=== PATIENT | female | born 1995 | race Caucasian/White ===

== ENCOUNTER 2017-10-02 14:23 | Emergency (ER) | payer OTHER ==
--- NOTE | 2017-10-02 15:08 | EDPHY ---
H & P Time Seen by Provider: 10/02/17 15:04 HPI/ROS: Chief complaint. Abdominal pain HPI. 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 She has a history of idiopathic pancreatitis. Her last flare was last week and then about a month before that. Symptoms started this morning. She has upper aching abdominal pain radiating through to her back. No precipitating factors of dietary indiscretion, trauma, alcohol. Symptoms are typical of pancreatitis flare. She has nausea but no vomiting. No chest discomfort or trouble breathing. ROS Constitutional. no fever/chills, no weakness Eyes. no problems with vision ENT. no sore throat, no nasal drainage Cardiovascular. no chest pain Respiratory. no shortness of breath, no cough Abdominal. Upper abdominal pain with nausea . no problems urinating MS. no calf pain/swelling, no neck/back pain, no joint pain Skin. no rash Lymph. no swollen glands Neuro. no headache, no dizziness, no difficulty walking or with speech Past Medical/Surgical History: Idiopathic pancreatitis Social History: Single, nonsmoker, no alcohol Smoking Status: Never smoked Physical Exam: General Appearance: Alert pleasant well-developed female moderate distress vital signs are stable Eyes: Pupils equal and round no pallor or injection. ENT, Mouth: Mucous membranes are moist. Respiratory: There are no retractions, lungs are clear to auscultation. Cardiovascular: Regular rate and rhythm. Gastrointestinal: Abdomen is soft with epigastric abdominal pain. Normal bowel sounds. No mass Neurological: Awake and alert, sensory and motor exams grossly normal. Skin: Warm and dry, no rashes. Musculoskeletal: Neck is supple nontender. Extremities symmetrical, full range of motion. Psychiatric: Patient is oriented X 3, there is no agitation. Constitutional: Initial Vital Signs Temperature (C) 36.8 C 10/02/17 14:26 Heart Rate 81 10/02/17 14:26 Respiratory Rate 18 10/02/17 14:26 Blood Pressure 113/82 H 10/02/17 14:26 O2 Sat (%) 96 10/02/17 14:26 O2 Delivery Mode Room Air Allergies/Adverse Reactions: hydromorphone [From Dilaudid] Allergy (Verified 10/02/17 14:26) Penicillins Allergy (Verified 10/02/17 14:25) Home Medications: Medication Instructions Recorded NK [No Known Home Meds] 10/02/17 Medical Decision Making Procedures: IV normal saline with initial target 2 L. Morphine for pain. Zofran for nausea ED Course/Re-evaluation: Recheck at 4:05 p.m.. Patient is stable though continued to complain of pain and inadequate relief with the 1st round of morphine. She will be re- medicated. We will reassess and decide on admission versus outpatient management Re-evaluation again at 5:45 p.m.. Patient is stable she is feeling much better. She feels that she is able to go home. She has her own medication for further treatment of pancreatitis. Patient and I discussed treatment plan including criteria for return and importance of follow-up and further evaluation. She expresses understanding and agreement Differential Diagnosis: Apparent idiopathic pancreatitis history. Typical symptoms. Lipase is elevated. However patient feels well without vomiting and feels she can be treated as an outpatient. - Data Points Laboratory Results: Laboratory Results 10/02/17 14:50 10/02/17 14:50 10/02/17 10/02/17 14:50 14:50 WBC 5.55 10^3/uL 10^3/uL (3.80-9.50) RBC 4.66 10^6/uL 10^6/uL (4.18-5.33) Hgb 13.2 g/dL g/dL (12.6-16.3) Hct 39.9 % % (38.0-47.0) MCV 85.6 fL fL (81.5-99.8) MCH 28.3 pg pg (27.9-34.1) MCHC 33.1 g/dL g/dL (32.4-36.7) RDW 13.9 % % (11.5-15.2) Plt Count 389 10^3/uL 10^3/uL (150-400) MPV 9.6 fL fL (8.7-11.7) Neut % (Auto) 50.9 % % (39.3-74.2) Lymph % (Auto) 41.4 % % (15.0-45.0) [place] % (Auto) 6.7 % % (4.5-13.0) Eos % (Auto) 0.4 % L % (0.6-7.6) Baso % (Auto) 0.4 % % (0.3-1.7) Nucleat RBC Rel Count 0.0 % % (0.0-0.2) Absolute Neuts (auto) 2.83 10^3/uL 10^3/uL (1.70-6.50) Absolute Lymphs (auto) 2.30 10^3/uL 10^3/uL (1.00-3.00) Absolute Monos (auto) 0.37 10^3/uL 10^3/uL (0.30-0.80) Absolute Eos (auto) 0.02 10^3/uL L 10^3/uL (0.03-0.40) Absolute Basos (auto) 0.02 10^3/uL 10^3/uL (0.02-0.10) Absolute Nucleated RBC 0.00 10^3/uL 10^3/uL (0-0.01) Immature Gran % 0.2 % % (0.0-1.1) Immature Gran # 0.01 10^3/uL 10^3/uL (0.00-0.10) Sodium 144 mEq/L mEq/L (135-145) Potassium 4.5 mEq/L mEq/L (3.3-5.0) Chloride 109 mEq/L mEq/L (97-110) Carbon Dioxide 20 mEq/l L mEq/l (22-31) Anion Gap 15 mEq/L mEq/L (8-16) BUN 11 mg/dL mg/dL (7-23) Creatinine 0.5 mg/dL L mg/dL (0.6-1.0) Estimated GFR > 60 Glucose 91 mg/dL mg/dL (70-100) Calcium 9.6 mg/dL mg/dL (8.5-10.4) Lipase 511 IU/L H IU/L (23-300) Medications Given: Discontinued Medications Sodium Chloride (Ns) 1,000 mls @ 0 mls/hr IV EDNOW ONE; Wide Open PRN Reason: Protocol Stop: 10/02/17 15:17 Last Admin: 10/02/17 15:25 Dose: 1,000 mls Sodium Chloride (Ns) 1,000 mls @ 0 mls/hr IV EDNOW ONE; Wide Open PRN Reason: Protocol Stop: 10/02/17 15:18 Last Admin: 10/02/17 15:26 Dose: 1,000 mls Morphine Sulfate (Morphine) 6 mg IVP EDNOW ONE Stop: 10/02/17 15:17 Last Admin: 10/02/17 15:27 Dose: 6 mg Morphine Sulfate (Morphine) 6 mg IVP EDNOW ONE Stop: 10/02/17 15:56 Last Admin: 10/02/17 16:09 Dose: 6 mg Ondansetron HCl (Zofran) 4 mg IVP EDNOW ONE Stop: 10/02/17 15:17 Last Admin: 10/02/17 15:27 Dose: Not Given Departure - Departure Disposition: Home, Routine, Self-Care Clinical Impression: Abdominal pain Qualifiers: Abdominal location: epigastric Qualified Code(s): R10.13 - Epigastric pain Pancreatitis Qualifiers: Chronicity: acute Pancreatitis type: idiopathic Acute pancreatitis complication : unspecified Qualified Code(s): K85.00 - Idiopathic acute pancreatitis without necrosis or infection Condition: Good Instructions: Pancreatitis (ED) Additional Instructions: Use your regular medications that you have with you to treat pancreatitis. Frequent, small sips fluids while nauseated. Gradual diet advancement Return for worsening symptoms. Recheck in 1-2 days for continuing symptoms Referrals: NONE *PRIMARY CARE P,. [Primary Care Provider] - As per Instructions Sim Kirkpatrick MD, FACG [Medical Doctor] - As per Instructions
[2017-10-02] MEDS ORDERED: NS 1,000 ML IV ONE ×2 (15:16→15:17)
[2017-10-02] MEDS: ONDANSETRON 4 MG/2 ML VIAL IVP ONE ×2 (15:25→15:27)
[2017-10-02 15:29] LABS: PLATELET COUNT 389 10^3/uL (150-400)
[2017-10-02 18:26] VITALS: BP 129/70
== END 2017-10-02 18:24 | disposition home or self-care (01) ==
DX: K85.00 Idiopathic acute pancreatitis without necrosis or infection (principal); E86.9 Volume depletion, unspecified
CPT/HCPCS: 96374; J2270; J2405

== ENCOUNTER 2017-10-27 12:41 | Inpatient (IN) | payer OTHER ==
--- NOTE | 2017-10-27 13:08 | EDPHY ---
H & P Stated Complaint: LUQ pain, n/v Time Seen by Provider: 10/27/17 13:08 HPI/ROS: CHIEF COMPLAINT: Acute the attack of chronic pancreatitis HISTORY OF PRESENT ILLNESS: The patient is very pleasant the 21-year-old female presents to the ED with acute pancreatitis. The patient has had a history of idiopathic pancreatitis since the age of 14. She is currently in [place] participating in a back country education class. She required helicopter transport to [facility] last night. She was treated in the emergency department with pain pain medications. Her lipase was normal however CT scan did demonstrate chronic pancreatitis with the some intraductal calcifications. The patient was discharged home with oral morphine. The patient presents to the ED with intractable pain and vomiting. She denies any drug or alcohol use. She takes no regular medications. REVIEW OF SYSTEMS: A comprehensive 10 point review of systems is otherwise negative aside from elements mentioned in the history of present illness. Source: Patient Exam Limitations: No limitations - Personal History LMP (Females 10-55): 1-7 Days Ago Current Tetanus/Diphtheria Vaccine: Yes Current Tetanus Diphtheria and Acellular Pertussis (TDAP): Yes - Medical/Surgical History Hx Asthma: No Hx Chronic Respiratory Disease: No Hx Diabetes: No Hx Cardiac Disease: No Hx Renal Disease: No Hx Cirrhosis: No Hx Alcoholism: No Hx HIV/AIDS: No Hx Splenectomy or Spleen Trauma: No Other PMH: PANCREATITIS - Social History Smoking Status: Never smoked - Physical Exam Exam: General Appearance: Alert, mild discomfort Eyes: Pupils equal and round no pallor or injection ENT, Mouth: Mucous membranes moist Respiratory: There are no retractions, lungs are clear to auscultation Cardiovascular: Regular rate and rhythm Gastrointestinal: Epigastric tenderness to palpation, normal bowel sounds Neurological: 5/5 strength all 4 extremities Skin: Warm and dry, no rashes Musculoskeletal: Neck is supple nontender Extremities: symmetrical, full range of motion Constitutional: Initial Vital Signs Temperature (C) 36.4 C 10/27/17 12:45 Heart Rate 77 10/27/17 12:45 Respiratory Rate 16 10/27/17 12:45 Blood Pressure 121/74 H 10/27/17 12:45 O2 Sat (%) 96 10/27/17 12:45 O2 Delivery Mode Room Air Allergies/Adverse Reactions: hydromorphone [From Dilaudid] Allergy (Verified 10/27/17 12:44) Penicillins Allergy (Verified 10/27/17 12:44) Home Medications: Medication Instructions Recorded Ondansetron [Ondansetron Odt] 4 mg PO Q6 PRN 10/27/17 morphINE IR [morphINE IR 15 mg (*)] 15 mg PO Q6 PRN 10/27/17 Medical Decision Making ED Course/Re-evaluation: The patient had an IV established. She received 1 L of normal saline, 4 mg of IV Zofran and 5 mg of IV morphine. The patient will require admission to the hospital for supportive care. I reviewed the results of her CT scan and prior laboratories testing performed earlier today. Consultation was made with Dr. Edgard Cotto from the hospitalist service who will admit the patient. Differential Diagnosis: Differential diagnosis considered includes pancreatitis, hepatitis, dehydration , renal failure, metabolic abnormality, pseudocyst - Data Points Laboratory Results: Laboratory Results 10/27/17 13:15 10/27/17 13:15 10/27/17 10/27/17 13:15 13:15 WBC 6.15 10^3/uL 10^3/uL (3.80-9.50) RBC 4.54 10^6/uL 10^6/uL (4.18-5.33) Hgb 12.7 g/dL g/dL (12.6-16.3) Hct 39.8 % % (38.0-47.0) MCV 87.7 fL fL (81.5-99.8) MCH 28.0 pg pg (27.9-34.1) MCHC 31.9 g/dL L g/dL (32.4-36.7) RDW 14.2 % % (11.5-15.2) Plt Count 334 10^3/uL 10^3/uL (150-400) MPV 9.9 fL fL (8.7-11.7) Neut % (Auto) 46.6 % % (39.3-74.2) Lymph % (Auto) 44.1 % % (15.0-45.0) [place] % (Auto) 8.3 % % (4.5-13.0) Eos % (Auto) 0.5 % L % (0.6-7.6) Baso % (Auto) 0.2 % L % (0.3-1.7) Nucleat RBC Rel Count 0.0 % % (0.0-0.2) Absolute Neuts (auto) 2.87 10^3/uL 10^3/uL (1.70-6.50) Absolute Lymphs (auto) 2.71 10^3/uL 10^3/uL (1.00-3.00) Absolute Monos (auto) 0.51 10^3/uL 10^3/uL (0.30-0.80) Absolute Eos (auto) 0.03 10^3/uL 10^3/uL (0.03-0.40) Absolute Basos (auto) 0.01 10^3/uL L 10^3/uL (0.02-0.10) Absolute Nucleated RBC 0.00 10^3/uL 10^3/uL (0-0.01) Immature Gran % 0.3 % % (0.0-1.1) Immature Gran # 0.02 10^3/uL 10^3/uL (0.00-0.10) Sodium 137 mEq/L mEq/L (135-145) Potassium 4.8 mEq/L mEq/L (3.3-5.0) Chloride 110 mEq/L mEq/L (97-110) Carbon Dioxide 22 mEq/l mEq/l (22-31) Anion Gap 5 mEq/L L mEq/L (8-16) BUN 10 mg/dL mg/dL (7-23) Creatinine 0.6 mg/dL mg/dL (0.6-1.0) Estimated GFR > 60 Glucose 74 mg/dL mg/dL (70-100) Calcium 8.8 mg/dL mg/dL (8.5-10.4) Total Bilirubin 0.9 mg/dL mg/dL (0.1-1.4) Conjugated Bilirubin 0.5 mg/dL mg/dL (0.0-0.5) Unconjugated Bilirubin 0.4 mg/dL mg/dL (0.0-1.1) AST 53 IU/L H IU/L (14-46) ALT 53 IU/L H IU/L (9-52) Alkaline Phosphatase 54 IU/L IU/L (38-126) Total Protein 8.2 g/dL g/dL (6.3-8.2) Albumin 4.2 g/dL g/dL (3.5-5.0) Lipase 110 IU/L IU/L (23-300) Specimen Hemolysis 123 Medications Given: Sodium Chloride (Ns) 1,000 mls @ 150 mls/hr IV CONT YANELIS Stop: 04/25/18 14:59 Last Admin: 10/27/17 15:51 Dose: 1,000 mls Morphine Sulfate (Morphine) 5 mg IVP Q4HRS PRN PRN Reason: Pain, Severe Unable to Take PO Stop: 11/06/17 15:02 Last Admin: 10/27/17 15:13 Dose: 5 mg Promethazine HCl (Phenergan) 12.5 mg IVP Q6HRS PRN PRN Reason: Nausea/Vomiting, Can't Take PO Stop: 04/25/18 15:02 Last Admin: 10/27/17 15:14 Dose: 12.5 mg Discontinued Medications Sodium Chloride (Ns) 1,000 mls @ 0 mls/hr IV EDNOW ONE; Wide Open PRN Reason: Protocol Stop: 10/27/17 13:17 Last Admin: 10/27/17 13:35 Dose: 1,000 mls Morphine Sulfate (Morphine) 4 mg IVP EDNOW ONE Stop: 10/27/17 13:41 Last Admin: 10/27/17 13:44 Dose: 4 mg Ondansetron HCl (Zofran) 4 mg IVP EDNOW ONE Stop: 10/27/17 13:17 Last Admin: 10/27/17 13:43 Dose: 4 mg Departure - Departure Disposition: [facility] Clinical Impression: Chronic pancreatitis Condition: Good
[2017-10-27] MEDS ORDERED: NS 1,000 ML IV ONE (13:16)
[2017-10-27] MEDS ORDERED: ONDANSETRON 4 MG/2 ML VIAL IVP ONE (13:16)
[2017-10-27 13:45] LABS: PLATELET COUNT 334 10^3/uL (150-400)
--- NOTE | 2017-10-27 15:04 | PDGENHP ---
History and Physical History and Physical: CC: ABDOMINAL PAIN HISTORY: This young woman has a history of chronic recurrent pancreatitis, which started occurring at age 14. This is when she lived in [facility] and she was initially evaluated at [facility]. Her initial evaluation showed no cause and it was termed idiopathic recurrent pancreatitis. She has less attacks than she used to but states that recently she has been noted to have some pancreatic ductal stones. Her gallbladder has been removed. She does not drink any alcohol to speak of. [place] with [place] guided group when last evening she started having abdominal pain nausea vomiting, and had a syncope spell due to the severity of pain. [place] the [place] and was visited early this morning at the emergency room at [facility]. There she was diagnosed with probable acute pancreatitis. A CT scan of the abdomen was done as well as some blood tests. She was hydrated given pain and nausea medicines and improved symptoms and was discharged from the ER. Through the day she has had continually worsening pain and nausea comes into our ER now with left upper quadrant pain nausea and vomiting. She denies any symptoms suggestive of fever. There has been no blood in her emesis. The pain episodes she is having now reminds her distinctly of previous pancreatitis episodes. She says her last drink of alcohol was approximately 1/2 beer 2 weeks ago and she has about that much alcohol no more than once a month. She does not take any prescription medications at home. Previously the patient has had several pancreatic stents placed by ERCP, and they tend to fall out she says typically and fairly short period of time. In addition to the history of recurrent of recurrent pancreatitis, the patient gives a history of an AVM in the liver that was coiled. ROS: A COMPREHENSIVE 10 SYSTEM REVIEW REVEALED NO OTHER SIGNIFICANT FINDINGS PAST MEDICAL HISTORY: Pancreatitis as above Hepatic AVM status post coiling Cholecystectomy FAMILY MEDICAL HISTORY: Coronary heart disease SOCIAL HISTORY: No more than 1/2 to 1 drink per month No tobacco or drug use MEDICATIONS: Usually no medicines, was given some Zofran and morphine tablets and she left the other ER today PHYSICAL EXAMINATION: VITAL SIGNS: Stable without fever ADMINISTRATIVE COURT JUSTICE: EXAMINATION: GENERAL: ALERT, ORIENTED, GOOD MENTATION, RELAXED SKIN: WARM, DRY, GOOD COLOR, NO RASH, NO JAUNDICE HEENT: NORMAL NECK: NO MASS OR JVD RESPS: RELAXED LUNGS: CLEAR BREATH SOUNDS HEART: REGULAR, NO MURMUR ABDOMEN: SOFT, NONDISTENDED, MILDLY DIFFUSELY TENDER WITHOUT GUARDING OR REBOUND , MINIMAL BOWEL SOUNDS ARE HEARD, NO MASS UPPER EXTREMITIES: NORMAL LOWER EXTREMITIES: NO EDEMA, WARM NO BLEEDING OR BRUISING NEUROLOGIC: NORMAL SPEECH/LANGUAGE, NORMAL CRUTCH MAKER, NO FOCAL WEAKNESS IV SITE: LOOKS NORMAL LABORATORY DATA: Unremarkable CBC Mildly elevated hepatic transaminases within normal bilirubin Normal lipase Otherwise normal metabolic panels RADIOLOGY STUDIES: There is a CT scan report from a study done at [facility] earlier this morning. I do not have images but I have the report from this which shows a) evidence of chronic pancreatitis with calcifications, b) 9 x 4 by 7 mm stone in the main pancreatic duct with upstream ductal dilatation, c) a low-density area in the pancreatic tail of uncertain etiology, with the radiologist suggesting possible focal ductal dilatation or a fluid collection such as a pseudocyst, and d)"mild surrounding hypoattenuation within the pancreatic parenchyma which may represent mild pancreatic necrosis" . Despite noting these findings, the radiologist states further that there is no explanation for the chronic pancreatitis and no evidence of acute pancreatitis. ASSESSMENT: # ACUTE PANCREATITIS SYMPTOMATIC EARLY, WITH HISTORY OF CHRONIC RECURRENT IDIOPATHIC PANCREATITIS # PRESENCE OF A PANCREATIC DUCTAL STONE WHICH APPEARS TO BE OBSTRUCTING, WITH PRIOR HISTORY OF PANCREATIC DUCTAL STONES # CHANGES WITHIN PANCREATIC PARENCHYMA WITH AN OUTSIDE RADIOLOGIST COMMENTING ON THE POSSIBILITY OF NECROSIS OR PSEUDOCYST FORMATION, THOUGH WITH THE SAME WHAT RADIOLOGIST STATING NO SUGGESTION OF ACUTE PANCREATITIS PLANS: * Admission hospital for hydration and pain and nausea management * I will consult with our jet worker radiologist here regarding the findings as stated by the outside radiologist; is unclear to me whether the ductal stone requires any further assessment or management * Will see if we are somehow able to get the actual images available from the other hospital to have our radiologist give their opinion about findings or directly I HAVE REVIEWED THE PATIENT'S CASE IN DETAIL WITH DR. MICHAEL WALKER I HAVE REVIEWED THE PATIENT'S PAST MEDICAL RECORDS PART OF THIS ASSESSMENT, INCLUDING CT SCAN AND LABORATORY RECORDS FROM OUTSIDE HOSPITAL EARLIER TODAY
[2017-10-27] MEDS ORDERED: PROMETHAZINE HCL 25 MG/ML INJ ONE (15:07)
[2017-10-27] MEDS: PROMETHAZINE HCL 25 MG/ML INJ IVP PRN (15:14)
[2017-10-27] MEDS: NS 1,000 ML IV SCH ×3 (15:17→22:19)
--- NOTE | 2017-10-27 15:59 | PDMN ---
Medical Necessity Medical necessity: Pt meets inpt criteria per MD order and MCG M-250, Pancreatitis RRG-2 days. Pt admitted with worsening upper quad pain, nausea and vomiting, requiring IVF for hydration, IV pain meds and IV antiemetics. Pt has hx of chronic, recurrent, idiopathic pancreatitis, CT scan today shows pancreatic ductal stone obstruction and changes within pancreatic parenchyma, AST and ALT elevated (53,53). Pt requires inpt monitoring and treatment.
[2017-10-27] MEDS ORDERED: HEPARIN 5,000 UNIT/0.5 ML INJ SC SCH (22:00)
[2017-10-28] MEDS: NS 1,000 ML IV SCH (04:40)
[2017-10-28] MEDS: PROMETHAZINE HCL 25 MG/ML INJ IVP PRN ×3 (09:40→22:08)
--- NOTE | 2017-10-28 09:46 | HOSPPROG ---
Hospitalist Progress Note Assessment/Plan: 21-year-old admitted with abdominal pain nausea vomiting. Please review admitting H and P for full details. Apparently she has had recurrent pancreatitis since the age of 14 that is idiopathic and possibly stone related. She is from [place] and is here volunteering for a camp up at [place]. She was med of active from the [facility] down to the hospital in [place] where she had a CT scan of the abdomen and pelvis which showed a pancreatic ductal stone. She continues to have abdominal pain today # abdominal pain, nausea vomiting with normal lipase. * Will ask GI to consult * Could consider MRCP, would avoid another CT scan given the patient's age and radiation exposure * For now continue supportive care with pain control, antiemetics and IV fluids Subjective: Patient new to me and chart reviewed. Still having quite a bit of pain on or sips and chips Objective: Vital Signs Temp Pulse Resp BP Pulse Ox 36.8 C 74 15 94/45 L 95 10/28/17 08:49 10/28/17 08:49 10/28/17 08:49 10/28/17 08:49 10/28/17 08:49 Laboratory Results 10/28/17 04:04 10/27/17 10/28/17 10/29/17 05:59 05:59 05:59 Intake Total 3178 Output Total 750 Balance 3178 -750 - Physical Exam Constitutional: uncomfortable Eyes: PERRL Ears, Nose, Mouth, Throat: hearing normal, ears appear normal Cardiovascular: regular rate and rhythym, no murmur, rub, or gallop Respiratory: no respiratory distress, clear to auscultation Gastrointestinal: tenderness Genitourinary: no bladder fullness Skin: warm, normal color Musculoskeletal: full muscle strength Neurologic: AAOx3 Psychiatric: interacting appropriately ICD10 Worksheet Patient Problems: Problems Problem Status Onset Chronic pancreatitis Acute
--- NOTE | 2017-10-28 09:48 | ASMTCASEMG ---
Living Arrangements What is your living Answers: With One Parent arrangement? Who do you live with? Type Of Residence What kind of residence do Answers: House you live in? Type of Residence Facility Name Notes: Patient lives in [facility]. Discharge Plan Comments Coordination Status Comments Notes: Patient is a 21 yo single female who has a hx of chronic recurrent pancreatitis, which started at age 14. Patient was on a backcountry wilderness experience when she started having abdominal pain, nausea, and vomiting. Patient was helicoptered out [place] the mountains to the [facility]. She was hydrated, given medications and discharged from their ER. Throughout the day her pain and nausea worsened and she came to our ER. Patient has had several pancreatic stents placed by ERCP and they tend to fall out in a short period of time by patient's report. No therapies have been ordered at this time. D/C needs TBD. CM will follow. Date Signed: 10/28/2017 09:47 AM Electronically Signed By:Mili Bonilla LCSW
--- NOTE | 2017-10-28 12:20 | GCON ---
[f rep st] CONSULTATION REASON FOR CONSULTATION: Pancreatitis. CHIEF COMPLAINT: Abdominal pain. HISTORY: Briefly, the patient is a very pleasant 21-year-old female, with a past medical history significant for recurrent acute on chronic pancreatitis. She developed her 1st episode of pancreatitis when she was 14 years old. She reports she has had countless episodes since. She has had her gallbladder removed. She has had multiple ERCPs. She has had prior pancreas duct stones and strictures. She has had a prior pancreas duct stricture management with stenting and prior stone management with lithotripsy. She has done this in her hometown of [facility]. 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 She was transferred to [facility], where she was originally evaluated with imaging. She improved some with conservative measures and was discharged home, but began to feel worse and so re -presented to [facility] for ongoing management. She reports nausea, abdominal pain, but denies fever, chills or sweats. She has had no change in bowel habits. She reports she has had worse episodes of pancreatitis than this. Her imaging at [facility], CT scan revealed a pancreatic duct stone that was 9 mm in size. She reports she started to feel somewhat better today, but continues to have abdominal pain. She reports no alcohol use. She does not smoke cigarettes. PAST MEDICAL HISTORY: Notable only for pancreatitis. ALLERGIES: Hydromorphone and penicillin. FAMILY HISTORY: Negative for pancreatitis. REVIEW OF SYSTEMS: A complete 14-point review was undertaken with the patient and is negative except for those details described in the history of present illness. PHYSICAL EXAM: GENERAL: This is a well-developed female in no apparent distress. HEENT: Her pupils are equal, round, react to light and accommodation. Sclerae nonicteric. Oropharynx is clear. NECK: Supple without lymphadenopathy. HEART: Regular without murmur. ABDOMEN: Soft, but tender throughout. EXTREMITIES: Free of cyanosis, clubbing, edema. NEURO: Grossly nonfocal. SKIN: Warm and dry. PSYCHIATRIC: Normal mood and affect. LABORATORY DATA: White count of 6.15, hemoglobin of 12.7, hematocrit of 39.8, platelet count of 334. Sodium of 138, potassium of 4.2, chloride of 109, bicarb of 19, BUN of 7, creatinine of 0.6. AST of 34, ALT of 58, alkaline phosphatase of 51, albumin of 31, lipase of 110. IMPRESSION/RECOMMENDATIONS: Based on her clinical history, current symptoms, and recent imaging, I suspect she is having acute on chronic pancreatitis. This may be the result of the development of a pancreatic duct stone. At this time, I recommend we manage her conservatively with standard pancreatitis care. We will leave her n.p.o. on analgesics and antiemetics. Hopefully, she will "cool down, "and can undergo elective, perhaps outpatient, pancreatic duct manipulation with lithotripsy and stent placement. If she becomes acutely worse , is not resolving her pancreatitis, we can consider pancreatic duct intervention more quickly. /[id number]/MODL MTDD
[2017-10-28] MEDS: D5W NS 1,000 ML IV SCH ×2 (13:07→22:08)
[2017-10-28] MEDS ORDERED: GADOBUTROL 10 ML VIAL IVP ONE (17:01)
[2017-10-29] MEDS: D5W NS 1,000 ML IV SCH (05:49)
[2017-10-29] MEDS: PROMETHAZINE HCL 25 MG/ML INJ IVP PRN (05:49)
--- NOTE | 2017-10-29 07:31 | SOAPPROG ---
SOAP Progress Note Assessment/Plan: Assessment: 1. Pancreatitis - idiopathic etiology, long standing issue - prior hx of frequent acute on chronic episodes - prior management at home is [facility] - PD stent, stricture, stone present on MRCP - no pseudocyst or mass noted - pt reports improvement, but still with pain Plan: 1. ok to do small amounts of fat-free clears today 2. continue supportive care 3. hope to dc home soon, pending clinical course 4. will likely need outpatient ERCP with choledocoscopy, lithotripsy, and repeat PD stent placement once current pancreatitis "cools off' 5. continue supportive care 10/29/17 07:28 Subjective: CC: pancreatitis S: still with pain, using pain meds every 4-6 hrs mild nausea anxious to try some clear liquids despite the above overall, patient reports significant improvement overnight no fever Objective: Vital Signs Temp Pulse Resp BP Pulse Ox 38 C 82 16 107/66 96 10/29/17 04:00 10/29/17 04:00 10/29/17 04:00 10/29/17 04:00 10/29/17 04:00 Laboratory Results 10/28/17 04:04 10/28/17 10/29/17 10/30/17 05:59 05:59 05:59 Intake Total 3178 2620 Output Total 750 Balance 3178 1870 Physical Exam - Physical Exam General Appearance: alert, no apparent distress EENT: PERRL/EOMI Respiratory: lungs clear, normal breath sounds Cardiac/Chest: normal peripheral pulses, regular rate, rhythm, No edema Abdomen: normal bowel sounds, soft, No non-tender, No organomegaly, No distended , No guarding, No rebound Skin: normal color Extremities: normal range of motion Neuro/Psych: no motor/sensory deficits, alert, normal mood/affect, oriented x 3 ICD10 Worksheet Patient Problems: Problems Problem Status Onset Chronic pancreatitis Acute
--- NOTE | 2017-10-29 09:14 | HOSPPROG ---
Hospitalist Progress Note Assessment/Plan: DIAGNOSES: # ACUTE PANCREATITIS SYMPTOMATIC, WITH HISTORY OF CHRONIC RECURRENT IDIOPATHIC PANCREATITIS # PRESENCE OF A PANCREATIC DUCTAL STONE WHICH APPEARS TO BE OBSTRUCTING, WITH PRIOR HISTORY OF PANCREATIC DUCTAL STONES # CHANGES WITHIN PANCREATIC PARENCHYMA WITH AN OUTSIDE RADIOLOGIST COMMENTING ON THE POSSIBILITY OF NECROSIS OR PSEUDOCYST FORMATION PLANS: * attempt increase diet today * follow sxs closely * will review w Dr Box; since she is feeling better I expect we will want to continue conservative care until pancreas improves before any procedures related to her stone in order to minimize any risk of worsening pancreatitis SUBJECTIVE: She does notice some decrease in pain today Still nausea requiring antiemetics but no vomiting Feels like she may be able to eat more today OBJECTIVE Vitals reviewed: All stable without fever Exam: alert oriented skin warm dry color ok resps not labored lungs clear BSs heart regular abd soft nondistended minimally tender without guarding or rebound, bowel sounds present limbs warm, no edema iv site ok Objective: Vital Signs Temp Pulse Resp BP Pulse Ox 38 C 82 16 107/66 96 10/29/17 04:00 10/29/17 04:00 10/29/17 04:00 10/29/17 04:00 10/29/17 04:00 Laboratory Results 10/28/17 04:04 10/28/17 10/29/17 10/30/17 06:59 06:59 06:59 Intake Total 8028 2620 Output Total 750 Balance 2429 2620 ICD10 Worksheet Patient Problems: Problems Problem Status Onset Chronic pancreatitis Acute
--- NOTE | 2017-10-29 16:00 | ASMTCMCOM ---
CM Note CM Note Notes: CM met with Pt. 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 She is able to arrange a ride for herself. No CM needs have been identified. D/C Plan: Anticipate independent. Date Signed: 10/29/2017 04:00 PM Electronically Signed By:Shannon Bertrand
--- NOTE | 2017-10-30 11:17 | SOAPPROG ---
SOAP Progress Note Assessment/Plan: Assessment: 1. Pancreatitis - idiopathic etiology, long standing issue - prior hx of frequent acute on chronic episodes - prior management at home is [facility] - PD stent, stricture, stone present on MRCP - no pseudocyst or mass noted - improved. no need for iv pain meds Plan: 1. ok to dc home 2. may benefit from panc enzyme supplements with meals/snack (data is equivocal) 3. NO ETOH 4. LOW/NO fat diet 5. My office will help to arrange follow-up ERCP SHAMAR 10/30/17 11:14 Subjective: CC: pancreatitis S: feeling better eating with limited pain no nausea no fever no diarrhea anxious to go home Objective: Vital Signs Temp Pulse Resp BP Pulse Ox 36.9 C 70 15 102/68 95 10/30/17 09:02 10/30/17 09:02 10/30/17 09:02 10/30/17 09:02 10/30/17 09:02 Laboratory Results 10/28/17 04:04 10/29/17 10/30/17 10/31/17 05:59 05:59 05:59 Intake Total 2620 500 150 Output Total 750 Balance 1870 500 150 Physical Exam - Physical Exam General Appearance: alert EENT: PERRL/EOMI Respiratory: lungs clear, normal breath sounds Cardiac/Chest: regular rate, rhythm Abdomen: normal bowel sounds, non-tender, soft Skin: normal color Neuro/Psych: no motor/sensory deficits ICD10 Worksheet Patient Problems: Problems Problem Status Onset Chronic pancreatitis Acute
[2017-10-30 12:21] VITALS: BP 103/71
--- NOTE | 2017-10-30 18:57 | PDDCSUM ---
Discharge Summary Discharge Summary: DISCHARGE DIAGNOSES: * acute on chronic pancreatitis * pancreatic ductal stone with upstream pancreatic ductal dilatation * possible development of pseudocyst * long history of recurrent chronic idiopathic pancreatitis with extensive evaluation elsewhere CONSULTANTS: Dr. Maureen Chapman PROCEDURES: Abdominal MRI scan HOSPITAL COURSE SUMMARY: This patient who has had intermittent idiopathic pancreatitis since age 14 came in with a typical episode of epigastric and left upper quadrant pain, nausea and vomiting. Her pain was great enough that she actually had a syncopal spell. She was initially evaluated at another hospital where a CT scan showed evidence of chronic pancreatitis, a ductal stone, and upstream ductal dilatation with some changes suggesting possible early pseudocyst formation. She had been discharged from that ER with some pain medicines but had ongoing and worsening symptoms so presented to our emergency room with the same symptoms. The patient did not have evidence of fever, necrosis, renal failure, or other complications at this time. She was admitted the hospital here and treated with conservative care including IV hydration and pain and nausea medicines as needed. She was initially NPO and then we had her try clear fluids and eventually moved on to a diet as tolerated with low fat. Overall she improved slowly but steadily and at this point still has some mild pain but is able to eat and drink keep herself well hydrated. It is felt she is safe for discharge from hospital. However as she does have a stone in her main pancreatic duct with obstruction, it is recommended that she follow up in [facility]astroenterology [facility] and have ERCP with attempted removal of that stone that may require lithotripsy. She understands this well and plans to visit in 1 week at the gastroenterology clinic. She understands the need to avoid alcohol and fatty foods. She understands to eat slowly. She understands to watch for fever worsening pain vomiting or other symptoms that might indicate that she needs other attention sooner. PENDING TEST RESULTS: None MEDICATION CHANGES: Zofran is added for nausea Initially prescription was offered for Creon tablets however due to patient[place] from [place] this was unaffordable for her and she will not fill that prescription FOLLOW-UP PLAN: In [address] Charu Chapman or Dr. Dona magallanes gastroenterology clinic, with plans to do ERCP with attempted removal of pancreatic ductal stone Greater than 35 minutes bedside and care coordination time today
== END 2017-10-30 15:40 | disposition home or self-care (01) | DRG 439 ==
LOC: F1N 15:21
PROVIDERS: ADMIT Internal Medicine; ATTEND Internal Medicine
DX: K85.00 Idiopathic acute pancreatitis without necrosis or infection (principal); K86.1 Other chronic pancreatitis; K86.89 Other specified diseases of pancreas; K86.3 Pseudocyst of pancreas
CPT/HCPCS: 96374; A9585; J2270; J2405; J2550

== ENCOUNTER 2017-11-09 21:55 | Emergency (ER) | payer OTHER ==
[2017-11-09] MEDS ORDERED: NS 1,000 ML IV ONE (22:14)
[2017-11-09] MEDS ORDERED: ONDANSETRON 4 MG/2 ML VIAL IVP ONE (22:14)
--- NOTE | 2017-11-09 22:24 | EDPHY ---
H & P Stated Complaint: Abd pain HX of pancreatitis Time Seen by Provider: 11/09/17 22:24 HPI/ROS: HPI CHIEF COMPLAINT: "I am having a pancreatitis flare" HISTORY OF PRESENT ILLNESS: Very pleasant 21-year-old female, she has idiopathic pancreatitis, pancreatic stones she is due on November 17 to have a ERCP performed, and removal of these pancreatic stones. She does not have any pancreatic stents. No history of pancreatic divisum. She does have a history of pancreatitis from idiopathic pancreatitis. She states around 8:00 p.m. Tonight or 2 and 0.5 hr ago she developed some epigastric abdominal pain. No vomiting. Does have nausea. She took morphine at 8:00 p.m. This helped a little bit but continues to have pain. Denies any fever, denies chest pain or shortness of breath. States feels exactly like previous pancreatitis flare. Past Medical History: Idiopathic pancreatitis Past Surgical History: Cholecystectomy Social History: Denies daily use drugs alcohol tobacco. Family History: Noncontributory ROS REVIEW OF SYSTEMS: A comprehensive 10 point review of systems is otherwise negative aside from elements mentioned in the history of present illness. Exam Constitutional appears well nontoxic no acute distress triage nursing summary reviewed, vital signs reviewed, awake/alert. Eyes normal conjunctivae and sclera, EOMI, PERRLA. HENT normal inspection, atraumatic, moist mucus membranes, no epistaxis, neck supple/ no meningismus, no raccoon eyes. Respiratory clear to auscultation bilaterally, normal breath sounds, no respiratory distress, no wheezing. Cardiovascular rate normal, regular rhythm, no murmur, no edema, distal pulses normal. Gastrointestinal mild tender palpation epigastric region no rebound, no guarding, normal bowel sounds, no distension, no pulsatile mass. Genitourinary no CVA tenderness. Musculoskeletal no midline vertebral tenderness, full range of motion, no calf swelling, no tenderness of extremities, no meningismus, good pulses, neurovascularly intact. Skin pink, warm, & dry, no rash, skin atraumatic. Neurologic awake, alert and oriented x 3, AAOx3, moves all 4 extremities equally, motor intact, sensory intact, CN II-XII intact, normal cerebellar, normal vision, normal speech. Psychiatric normal mood/affect. Heme/Lymph/Immune no lymphadenopathy. Differential diagnosis includes but is not limited to and in no particular order : Bowel obstruction, appendicitis, gallbladder disease, diverticulitis, colitis , enteritis, perforated viscus, gastritis, GERD, esophagitis, urinary tract infection, pyelonephritis, kidney stones Medical Decision Making: Plan for this patient IV establishment IV fluid bolus 1 L normal saline, IV morphine for pain control as she prefers this, IV Zofran for nausea, check lipase, basic lab work and re-evaluate. At This time I do not feel that any imaging is needed. Will re-evaluate. Re-evaluation: 0235: Patient re-evaluated resting comfortably. Re-examination abdomen is soft nontender. She is not vomiting. No fever. Blood work has been reviewed. Do not feel that she needs any imaging at this time. She feels much better after IV fluids and IV pain control. She is requesting discharge home. However I did discuss with her return precautions she understands return emergency room she develops worsening abdominal pain fever vomiting. Source: Patient - Personal History LMP (Females 10-55): 1-7 Days Ago Current Tetanus/Diphtheria Vaccine: Unsure Current Tetanus Diphtheria and Acellular Pertussis (TDAP): Unsure - Medical/Surgical History Hx Asthma: No Hx Chronic Respiratory Disease: No Hx Diabetes: No Hx Cardiac Disease: No Hx Renal Disease: No Hx Cirrhosis: No Hx Alcoholism: No Hx HIV/AIDS: No Hx Splenectomy or Spleen Trauma: No Other PMH: PANCREATITIS, gall bladder removed, depression - Social History Smoking Status: Never smoked Constitutional: Initial Vital Signs Temperature (C) 36.9 C 11/09/17 21:56 Heart Rate 85 11/09/17 21:56 Respiratory Rate 16 11/09/17 21:56 Blood Pressure 129/85 H 11/09/17 21:56 O2 Sat (%) 98 11/09/17 21:56 O2 Delivery Mode Room Air Allergies/Adverse Reactions: hydromorphone [From Dilaudid] Allergy (Verified 10/27/17 12:44) Penicillins Allergy (Verified 10/27/17 12:44) Home Medications: Medication Instructions Recorded morphINE IR [morphINE IR 15 mg (*)] 15 mg PO Q6 PRN 10/27/17 Lipase 12,000/Amylase/Protease 2 cap PO AC #180 cap 10/30/17 [Creon 12 (*)] Ondansetron [Ondansetron Odt] 4 mg PO Q6 PRN #20 tab.rapdis 10/30/17 Medical Decision Making - Data Points Laboratory Results: Laboratory Results 11/09/17 22:30 11/09/17 23:40 11/09/17 11/09/17 11/09/17 23:40 22:30 22:30 WBC RBC Hgb Hct MCV MCH MCHC RDW Plt Count MPV Neut % (Auto) Lymph % (Auto) [place] % (Auto) Eos % (Auto) Baso % (Auto) Nucleat RBC Rel Count Absolute Neuts (auto) Absolute Lymphs (auto) Absolute Monos (auto) Absolute Eos (auto) Absolute Basos (auto) Absolute Nucleated RBC Immature Gran % Immature Gran # Sodium 138 mEq/L mEq/L 137 mEq/L mEq/L (135-145) (135-145) Potassium 5.2 mEq/L H mEq/L 6.0 mEq/L H mEq/L (3.3-5.0) (3.3-5.0) Chloride 110 mEq/L mEq/L 108 mEq/L mEq/L (97-110) (97-110) Carbon Dioxide 20 mEq/l L mEq/l 18 mEq/l L mEq/l (22-31) (22-31) Anion Gap 8 mEq/L mEq/L 11 mEq/L mEq/L (8-16) (8-16) BUN 14 mg/dL mg/dL 14 mg/dL mg/dL (7-23) (7-23) Creatinine 0.5 mg/dL L mg/dL 0.5 mg/dL L mg/dL (0.6-1.0) (0.6-1.0) Estimated GFR > 60 > 60 Glucose 111 mg/dL H mg/dL 109 mg/dL H mg/dL (70-100) (70-100) Calcium 9.1 mg/dL mg/dL 9.2 mg/dL mg/dL (8.5-10.4) (8.5-10.4) Total Bilirubin 1.2 mg/dL mg/dL (0.1-1.4) Conjugated Bilirubin 1.1 mg/dL H mg/dL (0.0-0.5) Unconjugated Bilirubin 0.1 mg/dL mg/dL (0.0-1.1) AST 73 IU/L H IU/L (14-46) ALT 36 IU/L IU/L (9-52) Alkaline Phosphatase 70 IU/L IU/L (38-126) Total Protein 8.9 g/dL H g/dL (6.3-8.2) Albumin 4.6 g/dL g/dL (3.5-5.0) Lipase 289 IU/L IU/L (23-300) Beta HCG, Qual NEGATIVE Specimen Hemolysis 204 312 11/09/17 22:30 WBC 8.46 10^3/uL 10^3/uL (3.80-9.50) RBC 4.68 10^6/uL 10^6/uL (4.18-5.33) Hgb 12.8 g/dL g/dL (12.6-16.3) Hct 39.6 % % (38.0-47.0) MCV 84.6 fL fL (81.5-99.8) MCH 27.4 pg L pg (27.9-34.1) MCHC 32.3 g/dL L g/dL (32.4-36.7) RDW 13.2 % % (11.5-15.2) Plt Count 491 10^3/uL H 10^3/uL (150-400) MPV 9.2 fL fL (8.7-11.7) Neut % (Auto) 57.1 % % (39.3-74.2) Lymph % (Auto) 35.1 % % (15.0-45.0) [place] % (Auto) 5.9 % % (4.5-13.0) Eos % (Auto) 1.3 % % (0.6-7.6) Baso % (Auto) 0.2 % L % (0.3-1.7) Nucleat RBC Rel Count 0.0 % % (0.0-0.2) Absolute Neuts (auto) 4.83 10^3/uL 10^3/uL (1.70-6.50) Absolute Lymphs (auto) 2.97 10^3/uL 10^3/uL (1.00-3.00) Absolute Monos (auto) 0.50 10^3/uL 10^3/uL (0.30-0.80) Absolute Eos (auto) 0.11 10^3/uL 10^3/uL (0.03-0.40) Absolute Basos (auto) 0.02 10^3/uL 10^3/uL (0.02-0.10) Absolute Nucleated RBC 0.00 10^3/uL 10^3/uL (0-0.01) Immature Gran % 0.4 % % (0.0-1.1) Immature Gran # 0.03 10^3/uL 10^3/uL (0.00-0.10) Sodium Potassium Chloride Carbon Dioxide Anion Gap BUN Creatinine Estimated GFR Glucose Calcium Total Bilirubin Conjugated Bilirubin Unconjugated Bilirubin AST ALT Alkaline Phosphatase Total Protein Albumin Lipase Beta HCG, Qual Specimen Hemolysis Medications Given: Discontinued Medications Sodium Chloride (Ns) 1,000 mls @ 0 mls/hr IV EDNOW ONE; Wide Open PRN Reason: Protocol Stop: 11/09/17 22:15 Last Admin: 11/09/17 23:07 Dose: 1,000 mls Sodium Chloride (Ns) 1,000 mls @ 0 mls/hr IV ONCE ONE PRN Reason: Wide Open Stop: 11/10/17 01:00 Last Admin: 11/10/17 01:14 Dose: 1,000 mls Morphine Sulfate (Morphine) 4 mg IVP EDNOW ONE Stop: 11/09/17 22:31 Last Admin: 11/09/17 23:07 Dose: 4 mg Morphine Sulfate (Morphine) 4 mg IVP EDNOW ONE Stop: 11/10/17 00:02 Last Admin: 11/10/17 00:02 Dose: 4 mg Morphine Sulfate (Morphine) 6 mg IVP EDNOW ONE Stop: 11/10/17 01:00 Last Admin: 11/10/17 01:12 Dose: 6 mg Ondansetron HCl (Zofran) 4 mg IVP EDNOW ONE Stop: 11/09/17 22:15 Last Admin: 11/09/17 23:08 Dose: 4 mg Departure - Departure Disposition: Home, Routine, Self-Care Clinical Impression: Abdominal pain Qualifiers: Abdominal location: generalized Qualified Code(s): R10.84 - Generalized abdominal pain Condition: Good Instructions: Acute Abdominal Pain (ED) Additional Instructions: 1. Ward diet over the next 24-48 hours no spicy fatty greasy foods. 2. Return emergency room if you have worsening abdominal pain fever vomiting. Referrals: NONE *PRIMARY CARE P,. [Primary Care Provider] - As per Instructions
[2017-11-09 23:11] LABS: PLATELET COUNT 491 10^3/uL (150-400)
[2017-11-10] MEDS ORDERED: NS 1,000 ML IV ONE (00:59)
[2017-11-10 02:41] VITALS: BP 120/77
== END 2017-11-10 03:01 | disposition home or self-care (01) ==
DX: R10.84 Generalized abdominal pain (principal); E86.9 Volume depletion, unspecified; Z90.49 Acquired absence of other specified parts of digestive tract
CPT/HCPCS: 96374; J2270; J2405

== ENCOUNTER 2017-11-17 00:55 | Emergency (ER) | payer OTHER ==
[2017-11-17] MEDS ORDERED: NS 1,000 ML IV ONE (01:15)
[2017-11-17] MEDS ORDERED: PROMETHAZINE HCL 25 MG/ML INJ IVP ONE (01:15)
--- NOTE | 2017-11-17 01:19 | EDPHY ---
H & P Stated Complaint: abd pain x 1 hr,? pancreatitis Time Seen by Provider: 11/17/17 01:10 HPI/ROS: Chief Complaint: Pancreatitis flare, abdominal pain HPI: 22-year-old woman with a history of idiopathic pancreatitis with a known pancreatic duct stones presenting with epigastric abdominal pain for the last 2 hr consistent with prior pancreatitis flares. Patient was admitted to this hospital on the of this month. She was also seen here on the with a flare of her pancreatitis. She is scheduled for an ERCP by gastroenterology in 2 days. She has not had any significant flare since her last ED visit. Pain began about 2 hr ago. Currently a 12/29. She took morphine and Zofran at home without any relief. Some nausea no vomiting. No fevers or chills. ROS: 10 point Review of Systems is negative except as noted in the HPI. PMH: Idiopathic pancreatitis Social History: No smoking, no alcohol, no recreational drug use Family History: non-contributory Physical Exam: Gen: Awake, Alert, No Distress HEENT: Nose: no rhinorrhea Eyes: PERRLA, EOMI Mouth: Moist mucosa Neck: Supple, no JVD Chest: nontender, lungs clear to auscultation Heart: S1, S2 normal, no murmur Abd: Soft, moderate epigastric tenderness, no guarding Back: no CVA tenderness, no midline tenderness Ext: no edema, non-tender Skin: no rash Neuro: CN II-XII intact, Sensation grossly intact, Strength 5/5 in bilateral upper and lower extremities - Personal History LMP (Females 10-55): 1-7 Days Ago Current Tetanus Diphtheria and Acellular Pertussis (TDAP): Yes - Medical/Surgical History Hx Asthma: No Hx Chronic Respiratory Disease: No Hx Diabetes: No Hx Cardiac Disease: No Hx Renal Disease: No Hx Cirrhosis: No Hx Alcoholism: No Hx HIV/AIDS: No Hx Splenectomy or Spleen Trauma: No Other PMH: PANCREATITIS, gall bladder removed, depression - Social History Smoking Status: Never smoked Constitutional: Initial Vital Signs Temperature (C) 36.5 C 11/17/17 00:59 Heart Rate 82 11/17/17 00:59 Respiratory Rate 16 11/17/17 00:59 Blood Pressure 124/83 H 11/17/17 00:59 O2 Sat (%) 97 11/17/17 00:59 O2 Delivery Mode Room Air Allergies/Adverse Reactions: hydromorphone [From Dilaudid] Allergy (Verified 10/27/17 12:44) Penicillins Allergy (Verified 10/27/17 12:44) Home Medications: Medication Instructions Recorded morphINE IR [morphINE IR 15 mg (*)] 15 mg PO Q6 PRN 10/27/17 Ondansetron [Ondansetron Odt] 4 mg PO Q6 PRN #20 tab.rapdis 10/30/17 Medical Decision Making ED Course/Re-evaluation: 22-year-old a pancreatitis flare. Plan will be for laboratory evaluations analgesia and antiemetics and fluids. Patient is improved somewhat after morphine. Pain is now 7/10. Nausea has resolved. Will re-dose morphine and reassess. Lipase is elevated in the 400s. She does not have a leukocytosis. 0445 patient's pain is improved. She is asking to go home. She has an appointment for her ear CP in 2 days. She will return for any concerns. - Data Points Laboratory Results: Laboratory Results 11/17/17 01:35 11/17/17 01:35 11/17/17 11/17/17 01:35 01:35 WBC 9.29 10^3/uL 10^3/uL (3.80-9.50) RBC 4.62 10^6/uL 10^6/uL (4.18-5.33) Hgb 12.8 g/dL g/dL (12.6-16.3) Hct 38.9 % % (38.0-47.0) MCV 84.2 fL fL (81.5-99.8) MCH 27.7 pg L pg (27.9-34.1) MCHC 32.9 g/dL g/dL (32.4-36.7) RDW 13.2 % % (11.5-15.2) Plt Count 405 10^3/uL H 10^3/uL (150-400) MPV 9.5 fL fL (8.7-11.7) Neut % (Auto) 65.3 % % (39.3-74.2) Lymph % (Auto) 26.8 % % (15.0-45.0) [place] % (Auto) 6.5 % % (4.5-13.0) Eos % (Auto) 0.8 % % (0.6-7.6) Baso % (Auto) 0.3 % % (0.3-1.7) Nucleat RBC Rel Count 0.0 % % (0.0-0.2) Absolute Neuts (auto) 6.07 10^3/uL 10^3/uL (1.70-6.50) Absolute Lymphs (auto) 2.49 10^3/uL 10^3/uL (1.00-3.00) Absolute Monos (auto) 0.60 10^3/uL 10^3/uL (0.30-0.80) Absolute Eos (auto) 0.07 10^3/uL 10^3/uL (0.03-0.40) Absolute Basos (auto) 0.03 10^3/uL 10^3/uL (0.02-0.10) Absolute Nucleated RBC 0.00 10^3/uL 10^3/uL (0-0.01) Immature Gran % 0.3 % % (0.0-1.1) Immature Gran # 0.03 10^3/uL 10^3/uL (0.00-0.10) Sodium 139 mEq/L mEq/L (135-145) Potassium 4.3 mEq/L mEq/L (3.3-5.0) Chloride 108 mEq/L mEq/L (97-110) Carbon Dioxide 21 mEq/l L mEq/l (22-31) Anion Gap 10 mEq/L mEq/L (8-16) BUN 12 mg/dL mg/dL (7-23) Creatinine 0.5 mg/dL L mg/dL (0.6-1.0) Estimated GFR > 60 Glucose 110 mg/dL H mg/dL (70-100) Calcium 9.5 mg/dL mg/dL (8.5-10.4) Total Bilirubin 0.2 mg/dL mg/dL (0.1-1.4) AST 34 IU/L IU/L (14-46) ALT 48 IU/L IU/L (9-52) Alkaline Phosphatase 72 IU/L IU/L (38-126) Total Protein 8.0 g/dL g/dL (6.3-8.2) Albumin 4.3 g/dL g/dL (3.5-5.0) Lipase 487 IU/L H IU/L (23-300) Medications Given: Discontinued Medications Sodium Chloride (Ns) 1,000 mls @ 0 mls/hr IV ONCE ONE; Wide Open PRN Reason: Protocol Stop: 11/17/17 01:16 Last Admin: 11/17/17 01:21 Dose: 1,000 mls Morphine Sulfate (Morphine) 4 mg IVP ONCE ONE Stop: 11/17/17 01:16 Last Admin: 11/17/17 01:22 Dose: 4 mg Morphine Sulfate (Morphine) 4 mg IVP ONCE ONE Stop: 11/17/17 02:03 Last Admin: 11/17/17 02:05 Dose: 4 mg Morphine Sulfate (Morphine) 2 mg IVP ONCE ONE Stop: 11/17/17 02:43 Last Admin: 11/17/17 02:53 Dose: 2 mg Promethazine HCl (Phenergan) 12.5 mg IVP ONCE ONE Stop: 11/17/17 01:16 Last Admin: 11/17/17 01:22 Dose: 12.5 mg Departure - Departure Disposition: Home, Routine, Self-Care Clinical Impression: Chronic pancreatitis Condition: Good Instructions: Pancreatitis (ED) Additional Instructions: Follow up with her corporate securities research analyst in 2 days as scheduled for your ERCP. Return to the emergency department for worsening abdominal pain, uncontrolled nausea vomiting, fevers, or any other concerns. Referrals: NONE *PRIMARY CARE P,. [Primary Care Provider] - As per Instructions
[2017-11-17 01:47] LABS: PLATELET COUNT 405 10^3/uL (150-400)
[2017-11-17 05:09] VITALS: BP 94/64
== END 2017-11-17 05:20 | disposition home or self-care (01) ==
DX: K86.1 Other chronic pancreatitis (principal); E86.9 Volume depletion, unspecified
CPT/HCPCS: 96374; J2270; J2550

== ENCOUNTER 2017-11-17 19:27 | Inpatient (IN) | payer OTHER ==
[2017-11-17] MEDS ORDERED: ONDANSETRON 4 MG/2 ML VIAL IVP ONE (19:38)
[2017-11-17] MEDS ORDERED: NS 1,000 ML IV ONE (19:38)
--- NOTE | 2017-11-17 19:41 | EDPHY ---
H & P Stated Complaint: bounce-back for pancreatitis, dx here this am. ongoing abd pain + nausea Time Seen by Provider: 11/17/17 19:36 HPI/ROS: CHIEF COMPLAINT: Acute abdominal pain HISTORY OF PRESENT ILLNESS: The patient presents to the ED with acute abdominal pain. She has a history of chronic intermittent abdominal pain from idiopathic pancreatitis. She was hospitalized earlier this month. She was seen in consultation by GI. She is noted to have some aberrancy anatomy noted in her pancreas and is scheduled to undergo ERCP as an outpatient. The patient has been to the emergency department now 3 times since her prior hospitalization. During each visit she has received IV fluids, anti emetics and pain medications and has been discharged home. She was in the department earlier this morning. Her lipase was 400. She felt better after receiving traditional treatment and was discharged home. REVIEW OF SYSTEMS: A comprehensive 10 point review of systems is otherwise negative aside from elements mentioned in the history of present illness. Source: Patient Exam Limitations: No limitations - Personal History LMP (Females 10-55): 1-7 Days Ago Current Tetanus/Diphtheria Vaccine: Yes Current Tetanus Diphtheria and Acellular Pertussis (TDAP): Yes - Medical/Surgical History Hx Asthma: No Hx Chronic Respiratory Disease: No Hx Diabetes: No Hx Cardiac Disease: No Hx Renal Disease: No Hx Cirrhosis: No Hx Alcoholism: No Hx HIV/AIDS: No Hx Splenectomy or Spleen Trauma: No Other PMH: PANCREATITIS, gall bladder removed, depression - Social History Smoking Status: Never smoked - Physical Exam Exam: General Appearance: Alert, no distress Eyes: Pupils equal and round no pallor or injection ENT, Mouth: Mucous membranes moist Respiratory: There are no retractions, lungs are clear to auscultation Cardiovascular: Regular rate and rhythm Gastrointestinal: Epigastric tenderness to palpation, decreased bowel sounds, no peritoneal signs Neurological: 5/5 strength all 4 extremities Skin: Warm and dry, no rashes Musculoskeletal: Neck is supple nontender Extremities: symmetrical, full range of motion Constitutional: Initial Vital Signs Temperature (C) 36.4 C 11/17/17 19:32 Heart Rate 92 11/17/17 19:32 Respiratory Rate 16 11/17/17 19:32 Blood Pressure 108/72 11/17/17 19:32 O2 Sat (%) 93 11/17/17 19:32 O2 Delivery Mode Room Air Allergies/Adverse Reactions: hydromorphone [From Dilaudid] Allergy (Verified 11/17/17 20:18) Dyspnea Penicillins Allergy (Verified 11/17/17 20:18) Hives Home Medications: Medication Instructions Recorded morphINE IR [morphINE IR 15 mg (*)] 15 mg PO Q6 PRN 10/27/17 Ondansetron [Ondansetron Odt] 4 mg PO Q6 PRN #20 tab.rapdis 10/30/17 Medical Decision Making ED Course/Re-evaluation: I reviewed the patient's workup from earlier today. She presents to the ED with recurrent acute pancreatitis. The patient had an IV established. She received 1 L of normal saline. She received 6 mg of IV morphine and 4 mg of Zofran. The patient continues to have a reassuring CBC. Serum chemistries and lipase currently pending. The patient has had 2 emergency department visits in the past 24 hr and will require admission to the hospital for bowel rest and supportive care. I reviewed the results of Dr. Estevez's prior consult normal. The patient is scheduled to undergo ERCP in 2 days of [facility]. I have consulted with Gastroenterology to see if it is appropriate to consider that procedure more urgently given the patient's multiple ED visits. I spoke with Dr. Eden from the hospitalist service who will admit the patient. Consultation was made with Dr. Mcmillan from Gastroenterology. He will reviewed the patient's plan for intervention as he suspected it would be Dr. Carcamo performing the procedure. Differential Diagnosis: Differential diagnosis considered includes pancreatitis, choledocholithiasis, dehydration, metabolic abnormality, peritonitis - Data Points Laboratory Results: Laboratory Results 11/17/17 19:55 11/17/17 19:55 11/17/17 11/17/17 19:55 19:55 WBC 8.65 10^3/uL 10^3/uL (3.80-9.50) RBC 4.77 10^6/uL 10^6/uL (4.18-5.33) Hgb 13.3 g/dL g/dL (12.6-16.3) Hct 41.0 % % (38.0-47.0) MCV 86.0 fL fL (81.5-99.8) MCH 27.9 pg pg (27.9-34.1) MCHC 32.4 g/dL g/dL (32.4-36.7) RDW 13.3 % % (11.5-15.2) Plt Count 374 10^3/uL 10^3/uL (150-400) MPV 9.6 fL fL (8.7-11.7) Neut % (Auto) 57.2 % % (39.3-74.2) Lymph % (Auto) 34.6 % % (15.0-45.0) Blanco % (Auto) 6.2 % % (4.5-13.0) Eos % (Auto) 1.2 % % (0.6-7.6) Baso % (Auto) 0.3 % % (0.3-1.7) Nucleat RBC Rel Count 0.0 % % (0.0-0.2) Absolute Neuts (auto) 4.95 10^3/uL 10^3/uL (1.70-6.50) Absolute Lymphs (auto) 2.99 10^3/uL 10^3/uL (1.00-3.00) Absolute Monos (auto) 0.54 10^3/uL 10^3/uL (0.30-0.80) Absolute Eos (auto) 0.10 10^3/uL 10^3/uL (0.03-0.40) Absolute Basos (auto) 0.03 10^3/uL 10^3/uL (0.02-0.10) Absolute Nucleated RBC 0.00 10^3/uL 10^3/uL (0-0.01) Immature Gran % 0.5 % % (0.0-1.1) Immature Gran # 0.04 10^3/uL 10^3/uL (0.00-0.10) Sodium 137 mEq/L mEq/L (135-145) Potassium 4.2 mEq/L mEq/L (3.3-5.0) Chloride 105 mEq/L mEq/L (97-110) Carbon Dioxide 22 mEq/l mEq/l (22-31) Anion Gap 10 mEq/L mEq/L (8-16) BUN 11 mg/dL mg/dL (7-23) Creatinine 0.6 mg/dL mg/dL (0.6-1.0) Estimated GFR > 60 Glucose 78 mg/dL mg/dL (70-100) Calcium 9.4 mg/dL mg/dL (8.5-10.4) Lipase 158 IU/L IU/L (23-300) Medications Given: Discontinued Medications Sodium Chloride (Ns) 1,000 mls @ 0 mls/hr IV EDNOW ONE; Wide Open PRN Reason: Protocol Stop: 11/17/17 19:39 Last Admin: 11/17/17 19:57 Dose: 1,000 mls Morphine Sulfate (Morphine) 6 mg IVP EDNOW ONE Stop: 11/17/17 19:39 Last Admin: 11/17/17 19:57 Dose: 6 mg Morphine Sulfate (Morphine) 4 mg IVP EDNOW ONE Stop: 11/17/17 20:33 Last Admin: 11/17/17 20:34 Dose: 4 mg Ondansetron HCl (Zofran) 4 mg IVP EDNOW ONE Stop: 11/17/17 19:39 Last Admin: 11/17/17 19:57 Dose: 4 mg Departure - Departure Disposition: [facility] Acute Clinical Impression: Chronic pancreatitis Condition: Good
[2017-11-17 20:01] LABS: PLATELET COUNT 374 10^3/uL (150-400)
[2017-11-17] MEDS ORDERED: PROMETHAZINE HCL 25 MG/ML INJ IVP PRN (21:05)
[2017-11-17] MEDS ORDERED: ACETAMINOPHEN 650 MG SUPP PR PRN (21:05)
[2017-11-17] MEDS ORDERED: fentaNYL 100 MCG/2 ML INJ IVP PRN (21:07)
[2017-11-17] MEDS: oxyCODONE IR 5 MG TAB PO PRN (22:27)
--- NOTE | 2017-11-18 00:37 | GHP ---
[f rep st] HISTORY AND PHYSICAL DATE OF ADMISSION: 11/17/2017 CHIEF COMPLAINT: Recurrent epigastric pain. HISTORY OF PRESENT ILLNESS: This is a 22-year-old female with a past medical history of recurrent id iopathic pancreatitis diagnosed at the age of 14, who has had multiple emergency room visits over the past month. She was admitted earlier in October and has been in the emergency room after discharge on the and then 2 times today. The tentative plan for her symptoms was for ERCP to address pancrea tic ductal stone that was seen with associated upstream pancreatic ductal dilatation. Discussions morgan d taken place in regard to possible lithotripsy as well and stent placement. This was actually sched uled to occur in the next 2 days to be done at [facility]. However, considering the recurrent ly ER visits it was decided to admit her to the hospital for GI consultation. Dr. Mcdowell did review the case with Dr. Mcmillan with Gastroenterology this evening and her case will be reviewed for dane grey recommendations. PAST MEDICAL HISTORY: 1. Recurrent idiopathic pancreatitis diagnosed at the age of 14. 2. AV malformation of the liver. PAST SURGICAL HISTORY: Cholecystectomy. MEDICATIONS: No medications taken on a daily basis. She uses immediate release morphine at 15 mg ev benjamin 6 hours as needed with recurrence of pancreatitis symptoms as well as p.r.n. Zofran. ALLERGIES: 1. Dilaudid. 2. Penicillin. FAMILY HISTORY: No family history of recurrent pancreatitis. SOCIAL HISTORY: The patient is currently single. She is a nonsmoker. She does not drink alcohol. REVIEW OF SYSTEMS: CONSTITUTIONAL: No complaints of any subjective fevers or chills. ENT: No rece nt upper respiratory illnesses. CARDIOVASCULAR: No complaints of chest pain, palpitations, or synco pal episodes. RESPIRATORY: No complaints of shortness of breath or productive cough. GI: No vomit ing or diarrhea today. Epigastric pain has been noted. : No report of any difficulty with urinat ion. NEUROLOGIC: No complaints of any headaches or focal weakness. HEMATOLOGIC: No history of any deep vein thrombosis or pulmonary embolism. PSYCHIATRIC: No history of heat intolerance or polyuri a. SKIN: No new skin rashes or bruising of her skin noted. MUSCULOSKELETAL: No focal joint pains. PHYSICAL EXAM: VITAL SIGNS: Temperature 36.4, blood pressure 108/72, heart rate 92, respirations 16 , saturating 93% on room air. GENERAL: Patient appears mildly distressed secondary to epigastric di scomfort, but she is awake, alert, conversant, able to provide a good history. HEENT: Extraocular m ovements intact. No scleral icterus is noted. NECK: Supple. No thyroid enlargement appreciated. CHEST: Clear to auscultation with normal respiratory effort. HEART: Regular. No murmurs noted. A BDOMEN: Tender at the epigastrium. Nondistended. Normal bowel sounds. : No Ingram catheter in p lace. EXTREMITIES: No significant pitting edema. NEUROLOGIC: Cranial nerves 2 through 12 appear g rossly intact with 5 out of 5 strength in extremities. LABS: White blood cell count 8, hemoglobin 13, platelets 374. Sodium 137, potassium 4.2, chloride 1 05, bicarb 22, BUN 11, creatinine 0.6, glucose is 78. Lipase of 158. ASSESSMENT/PLAN: 1. Pancreatitis--recurrent idiopathic. With multiple visits to the emergency room. Gastroenterolog y consultation has been made and will await further recommendations. Otherwise, we will continue wit h supportive measures including intravenous fluids and pain medications overnight. 2. Deep venous prophylaxis--low risk as she has been ambulatory. We will hold off on any heparin or Lovenox as possible procedures. DISPOSITION: Will admit under observation setting for now pending further recommendations. /[id number]/MODL
[2017-11-18] MEDS: oxyCODONE IR 5 MG TAB PO PRN ×5 (04:24→23:03)
[2017-11-18] MEDS: NS 1,000 ML IV SCH ×2 (04:25→14:05)
[2017-11-18 05:08] LABS: PLATELET COUNT 313 10^3/uL (150-400)
--- NOTE | 2017-11-18 08:19 | GCON ---
[f rep st] CONSULTATION REFERRING PHYSICIAN: Stanislav Eden MD CHIEF COMPLAINT: Epigastric pain, history of chronic pancreatitis. HISTORY OF PRESENT ILLNESS: I have been asked to see this 22-year-old woman in consultation by Dr. Stanislav Eden, for evaluation of abdominal pain. This patient has been previously seen by Dr. oBx, in our practice, on a recent prior admission. The patient has a history of recurrent acute on chronic pancreatitis. She had her 1st episode of pancreatitis at age 14 and she has had several episodes since that time. She has had a cholecystectomy and has had multiple ERCPs. 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 She is originally from [place], [facility]. 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 Most recent admission was on October 27. She was treated with IV hydration and pain medication at that point. She was referred to Dr. Carcamo in our practice for EUS and possible ERCP. She has had several visits to the ER. She is scheduled for this Friday, to see Dr. Carcamo at [facility]. She has had several visits to the ER with abdominal pain. Patient admitted with pain and further management. She had a normal lipase of 158, in the emergency department. She had a normal hemoglobin of 13 with a platelet count of 374. Serum chemistries were also normal. Recent imaging on October 28 showed findings consistent with chronic pancreatitis and possible stone in the main pancreatic duct within the pancreatic body. PAST MEDICAL HISTORY: Remarkable for pancreatitis. ALLERGIES: Hydromorphone and penicillin. FAMILY HISTORY: Negative for pancreatitis and noncontributory as it pertains to chief complaint. MEDICATIONS: In hospital include fentanyl, Zofran, oxycodone IR, and Phenergan. She had been on no medications on a daily basis. She does, however, use morphine every 6 hours as needed for symptoms of pain associated with pancreatitis. REVIEW OF SYSTEMS: Negative for 10 systems other than mentioned in HPI. SOCIAL HISTORY: Patient is single. Nonsmoker. Does not drink alcohol. PHYSICAL EXAM: VITAL SIGNS: 102/55, heart rate of 58, respiratory rate 16, 94 % sat on room air. 37.6. GENERAL: Very pleasant woman seeming somewhat uncomfortable lying in bed, somewhat sleepy. HEENT: Normocephalic. Mucous membranes moist. NECK: No cervical adenopathy. No thyromegaly. LUNGS: Clear. CARDIAC: Normal S1, S2 without murmur. ABDOMEN: Soft, with tenderness to palpation. Positive bowel sounds. EXTREMITIES: Without clubbing , cyanosis, edema. NEURO: Nonfocal. SKIN: Warm, dry, intact. PSYCH: Alert and oriented x3 but sleepy with a normal affect. LABORATORY DATA: Hemoglobin 11.8, hematocrit 37.2, white count of 6.88. Serum chemistries: Serum sodium 144, potassium 4.3, chloride 107, CO2 was 25, BUN 12 , creatinine 0.7, blood sugar 76. AST of 34, ALT of 48, alkaline phosphatase 72 , lipase of 487. IMPRESSION: This is a 22-year-old woman with acute on chronic pancreatitis. RECOMMENDATIONS: Management conservatively. IV fluids. Pain medication. N.p.o. Antiemetics. Patient with reported pancreatic stent. Will check an abdominal x-ray to see if in place or not. Patient does need further endoscopic management of her chronic pancreatitis. This will most likely require repeated interventions and longterm follow up. Spoke with Dr. Carcamo regarding procedure on Friday at [facility]. He is inclined not to proceed with EUS and or ERCP on Friday. Patient needs close follow up and since she is only here temporarily from [place] and her regular care is in [facility] he felt that it might be better if she follows up there. When taking po will recommend discharge with her regular GI specialist. Thank you for allowing me to participate in the care of this patient. /[id number]/MODL MTDD
--- NOTE | 2017-11-18 08:33 | HOSPPROG ---
Hospitalist Progress Note Assessment/Plan: Patient is a 22 y/o female w hx of recurrent idiopathic pancreatitis dx at age 14. She was tentatively planned to have an ERCP to address pancreatic ductal stone. Today is my first encounter with the patient, chart reviewed. * Acute on chronic Pancreatitis--recurrent idiopathic -Dr Mcmillan to review case with Dr Carcamo -continue supportive care, increase IV fluids *abdominal pain due to the above -continued pain management -of note patient gets sinus congestion when she is given morphine *Plan: awaiting input from Dr Carcamo Subjective: Claudia is having mainly epigastric pain that wraps around her abdomen. Objective: Vital Signs Temp Pulse Resp BP Pulse Ox 36.7 C 70 16 109/67 91 L 11/18/17 08:00 11/18/17 08:00 11/18/17 08:00 11/18/17 08:00 11/18/17 08:00 Laboratory Results 11/18/17 04:40 11/18/17 04:40 11/17/17 11/18/17 11/19/17 05:59 05:59 05:59 Intake Total 1768 Balance 1768 - Physical Exam Constitutional: uncomfortable, No not in pain (epigastric) Eyes: PERRL Ears, Nose, Mouth, Throat: hearing normal Cardiovascular: regular rate and rhythym Respiratory: no respiratory distress Gastrointestinal: tenderness (epigastric area) Skin: warm, normal color Musculoskeletal: full muscle strength Neurologic: AAOx3 Psychiatric: interacting appropriately ICD10 Worksheet Patient Problems: Problems Problem Status Onset Chronic pancreatitis Acute
[2017-11-18] MEDS ORDERED: ENOXAPARIN 40 MG/0.4 ML SYR SC SCH (09:00)
--- NOTE | 2017-11-18 10:24 | ASMTCASEMG ---
Living Arrangements What is your living Answers: WIth Both Parents/1 Home arrangement? Who do you live with? Type Of Residence What kind of residence do Answers: House you live in? Discharge Plan Comments Coordination Status Comments Notes: Patient is a 22yo single female from [place] who was hospitalized with us earlier this month and has had multiple ER visits over the past month. Patient has a hx of recurrent idiopathic pancreatitis and a tenative plan for her symptoms of ERCP to address pancreatic ductal stone that was seen with associated upstream pancreatic ductal dilation. Patient was actually scheduled to have procedures done with [facility]. However, due to her numerous ER visits it was decided to admit her for a GI consultation. No therapies have been ordered at this time. D/C plan TBD. CAYETANO will follow. Date Signed: 11/18/2017 10:22 AM Electronically Signed By:Mili Bonilla LCSW
[2017-11-18] MEDS: fentaNYL 100 MCG/2 ML INJ IVP PRN ×4 (10:46→23:50)
[2017-11-18] MEDS: ONDANSETRON 4 MG/2 ML VIAL IVP PRN ×2 (10:50→19:32)
--- NOTE | 2017-11-18 15:18 | PDMN ---
Medical Necessity Medical necessity: MCG Pancreatitis 22 y/o w/ recurrent idiopathic pancreatitis. multiple ED visits for this over past month. Planning for ERCP this week. Severe pain management needed w/ IV opioids, IV antiemetics needed, IV fluids required, NPO status. GI consult. Per MD patient should be inpatient as we anticipate >2MN for continued NPO status and pain management.
[2017-11-19] MEDS: NS 1,000 ML IV SCH (01:36)
--- NOTE | 2017-11-19 08:51 | HOSPPROG ---
Hospitalist Progress Note Assessment/Plan: Patient is a 22 y/o female w hx of recurrent idiopathic pancreatitis dx at age 14. She was tentatively planned to have an ERCP to address pancreatic ductal stone. * Acute on chronic Pancreatitis--recurrent idiopathic -pain is overall much improved -continue supportive care, increase IV fluids *abdominal pain due to the above -better today *Plan: patient has a scheduled ERCP @ [facility] today 13:[address] Carcamo, Subjective: Claudia is feeling well, no c/o abdominal pain. Objective: Vital Signs Temp Pulse Resp BP Pulse Ox 36.5 C 59 L 16 96/55 L 94 11/19/17 04:00 11/19/17 04:00 11/19/17 04:00 11/19/17 04:00 11/19/17 04:00 Laboratory Results 11/18/17 04:40 11/18/17 04:40 11/18/17 11/19/17 11/20/17 05:59 05:59 05:59 Intake Total 1768 3262 Balance 1768 3262 - Physical Exam Constitutional: no apparent distress, appears nourished Eyes: PERRL Ears, Nose, Mouth, Throat: hearing normal Cardiovascular: regular rate and rhythym Respiratory: no respiratory distress Gastrointestinal: normoactive bowel sounds, soft, non-tender abdomen Skin: warm, normal color Musculoskeletal: full muscle strength Neurologic: AAOx3 Psychiatric: interacting appropriately ICD10 Worksheet Patient Problems: Problems Problem Status Onset Chronic pancreatitis Acute
[2017-11-19 09:34] VITALS: BP 117/82
--- NOTE | 2017-11-19 13:08 | GDS ---
[f rep st] DISCHARGE SUMMARY DISCHARGE DIAGNOSES: 1. Acute on chronic pancreatitis, idiopathic. 2. Abdominal pain. CONSULTATION: Jonathon Mcmillan MD. HOSPITAL COURSE: Briefly, Claudia Lemos is a 22-year-old female who has a history of recurrent acute on chronic pancreatitis. She had her first episode at age 14. She has had cholecystectomy and multiple ERCPs. She has a history of prior pancreatic duct stone strictures. She had a pancreatic stricture that was managed with stenting and prior stone removal. She is originally from [facility]. She was admitted because of epigastric pain. She was treated with IV hydration. Today, she is feeling markedly better. She will be discharged to [facility]. She is stable to drive herself and to follow up with Dr. Hugo Carcamo. The plan is for her to have an ERCP today at 1:30. HOSPITAL COURSE PER PROBLEM: 1. Acute on chronic pancreatitis. Her symptoms improved. She was given pain medications as well as IV hydration. 2. Abdominal pain, resolved. DISCHARGE CONDITION: Stable. Blood pressure is 96/55. Respiratory rate is 16. Pulse is 59. Temperature 36.5 Celsius. O2 saturations on room air are 94% . MEDICATIONS AT DISCHARGE: Please see the EMR. DISCHARGE INSTRUCTIONS: 1. Do not eat anything because of the pending procedure today. 2. If she develops worsening abdominal pain, fever, chills, or return to the ER. Greater than 30 minutes discharging and coordinating her plan of care for follow up care today at [facility]. Copy requested to: Dr. Dona Mcmillan Dr. /[id number]/MODL MTDD
== END 2017-11-19 11:14 | disposition home or self-care (01) | DRG 440 ==
LOC: F3E 20:45
PROVIDERS: ADMIT Internal Medicine; ATTEND Internal Medicine
DX: K86.1 Other chronic pancreatitis (principal); R10.13 Epigastric pain
CPT/HCPCS: 96374; J2270; J2405; J3010